=== PATIENT | female | born 1990 | race Caucasian/White ===

== ENCOUNTER 2019-05-18 11:13 | Day surgery (SDC) | payer OTHER ==
[2019-05-17 17:09] VITALS: BMI 18.3
[2019-05-18] MEDS ORDERED: BUPIVACAINE HCL/PF 0.5% (5MG/ML) 10 ML VIAL ONE (12:28)
[2019-05-18] MEDS ORDERED: MIDAZOLAM HCL 2 MG/2 ML SINGLE DOSE VIAL ONE ×2 (12:38)
[2019-05-18] MEDS ORDERED: ceFAZolin SODIUM 1 GM VIAL IVPB ONE (13:00)
[2019-05-18] MEDS ORDERED: PROPOFOL 20 ML ONE ×3 (13:00→13:50)
[2019-05-18] MEDS ORDERED: ceFAZolin SODIUM 1 GM VIAL ONE (13:04)
[2019-05-18] MEDS ORDERED: DEXAMETHASONE SOD PHOSPHATE 4 MG/1 ML VIAL ONE (13:09)
[2019-05-18] MEDS ORDERED: LIDOCAINE HCL 1%, 10 MG/ML (50 mL VIAL) IJ ONE (13:18)
[2019-05-18] MEDS ORDERED: EPHEDRINE SULFATE/0.9% NACL/PF 50 MG/10 ML SYRINGE NR ONE (13:49)
[2019-05-18] MEDS ORDERED: KETOROLAC TROMETHAMINE 30 MG/1 ML VIAL ONE (14:14)
[2019-05-18] MEDS ORDERED: BUPIVACAINE HCL/PF (5 MG/ML) 30 ML VIAL IJ ONE (14:26)
[2019-05-18] MEDS ORDERED: ACETAMINOPHEN INJECTION 100 ML IVPB ONE (14:55)
[2019-05-18] MEDS ORDERED: ACETAMINOPHEN 1000 MG/100 ML VIAL (NON FORMULARY) IVPB ONE ×2 (15:00→15:55)
[2019-05-18] MEDS ORDERED: oxyCODONE HCL 5 MG TABLET PO PRN ×2 (15:55)
[2019-05-18] MEDS ORDERED: ONDANSETRON 4 MG/2 ML VIAL IVPUSH PRN (15:55)
[2019-05-18] MEDS ORDERED: LACTATED RINGERS SOLUTION 1,000 ML IV SCH (16:00)
[2019-05-18 16:27] VITALS: TEMP 98.3
[2019-05-18 18:34] VITALS: BP 104/53; PULSE 81
--- NOTE | 2019-05-19 10:55 | OP ---
DATE OF OPERATION: 05/18/2019 SURGEON: Elijah Badillo DPM [employer]: Dexter Hsieh DPM, PGY-1 PREOPERATIVE DIAGNOSIS: Right 5th metatarsal fracture. POSTOPERATIVE DIAGNOSIS: Right 5th metatarsal fracture. PROCEDURE: Open reduction internal fixation of right 5th metatarsal fracture. PATHOLOGY: None. ANESTHESIA: MAC with local. HEMOSTASIS: Pneumatic ankle tourniquet 250 mmHg, Bovie cautery. ESTIMATED BLOOD LOSS: 10 mL. MATERIALS: Hole hook plate 1 x 5, screws 2 x 2.5 x 12 mm, screws 1 x 2.5 x 24 mm, bone graft, 2-0 Vicryl, 4-0 Vicryl, 4-0 nylon, Adaptic, 4x4 gauze, ABD pads, bivalve cast. INJECTABLES: Preoperatively 18 mL 1% lidocaine plain. Postoperatively 10 mL 0.5% Marcaine plain. CONDITION: Stable. COMPLICATIONS: None. DESCRIPTION OF PROCEDURE: Procedure began in the following manner: Patient was brought to the operating room and placed in the lateral decubitus position on the operating room table. After anesthesia was administered and 1 g of Ancef was given, a local infiltrative block was administered utilizing 1% lidocaine plain, a total of 18 mL was administered. The right foot was then prepped and draped in the usual aseptic fashion. Upon exsanguination of the right foot with an Esmarch bandage, the pneumatic ankle tourniquet was then inflated 250 mmHg. Surgery then began in the following manner: Attention was then directed to the lateral aspect of the right foot at the shaft of the 5th metatarsal. A linear skin incision was made over the lateral aspect of the 5th metatarsal and was approximately 4 cm in length over the fracture site. The incision was deepened through subcutaneous tissues with care taken to identify and retract all vital and neurovascular structures. The subcutaneous tissues were then bluntly and sharply dissected down to the level of the 5th metatarsal, and periosteal incision was then made. The periosteal tissues were reflected exposing this fracture site. Attention was then directed to the fracture site, which was visualized and cleaned with a dental pick. Next, utilizing a 4-5 K-wire, the fracture was temporarily fixated, and a 5-hole hook plate was placed. Using standard AO principles and techniques, 2 x 2.5 x 12 mm screws were placed into the plate. A third screw was placed, but the head had sheared off. The screw was confirmed by fluoroscopy to be secure within the body of the metatarsal. Next, a 1 x 2.5 x 24 mm screw was inserted across the fracture site, and utilizing intraoperative fluoroscopy, placement of the screw was noted to be through the fracture site with good alignment and reduction of the fracture site. Utilizing fluoroscopy, all hardware was found to be in good alignment and noted to be in proper placement. At this point, the surgical site was thoroughly flushed with copious amounts of normal sterile saline. The deep structures were then closed utilizing 2-0 Vicryl, and subcutaneous tissues were closed using 4-0 Vicryl, and the skin was closed using 4-0 nylon. Postoperative injection of 10 mL of 0.5% Marcaine plain was given within the surgical site. The foot was then dressed with Adaptic, 4x4s, Kerlix, and a bivalve cast. The patient tolerated the above procedure well and left the operating room to the recovery area with all vitals stable and neurovascular status intact to the right foot. Patient was given all postoperative directions by Dr. Badillo prior to the procedure and is to follow up in the office 2 weeks after the date of surgery. Dexter Hsieh DPM, dictating for ELIJAH BADILLO DPM CM/[id number]
== END 2019-05-18 18:30 | disposition home or self-care (01) ==
LOC: JASU-SURG 11:13
PROVIDERS: ATTEND Podiatrist Foot Surgery
PROC: 0QSN04Z Reposition Right Metatarsal with Internal Fixation Device, Open Approach (ICD-10-PCS; principal; 2019-05-18 12:30)
DX: S92.351A Displaced fracture of fifth metatarsal bone, right foot, initial encounter for closed fracture (principal); X58.XXXA Exposure to other specified factors, initial encounter; Y93.9 Activity, unspecified; Y92.9 Unspecified place or not applicable; Y99.9 Unspecified external cause status
CPT/HCPCS: 76000-TC-FY; 84703; 94760; J0131